=== PATIENT | female | born 1990 | race Caucasian/White ===

== ENCOUNTER 2021-05-19 06:19 | Day surgery (SDC) | payer OTHER, SELFPAY ==
[2021-05-19] VITALS (12 sets, daily range): BP systolic 122–142; BP diastolic 71–105; PULSE 69–85; RESP 16–20; TEMP 36.3–37.2; O2SAT 95–99; BMI 35.2
--- NOTE | ~2021-05-19 | CT_ITS ---
EXAMINATION: CT ABDOMEN AND PELVIS WITH CONTRAST CLINICAL INFORMATION: Abdominal pain, left lower quadrant pain COMPARISON: None TECHNIQUE: Multidetector volumetric images were obtained from the superior aspect of the liver through the pubic symphysis following administration 85 mL of Omnipaque 350 intravenous contrast. Sagittal and coronal reformatted images were obtained on the technologist's workstation. Oral contrast: No This CT examination was performed using dose optimization techniques as appropriate, variously including the following: *Automated exposure control *Adjustment of mA and/or kV according to patient size (this includes techniques or standardized protocols for targeted exams where dose is matched to indication/reason for exam; i.e. extremities or head) *Use of iterative reconstruction technique DLP: 669 mGy-cm FINDINGS: LUNG BASES: There is minimal dependent bibasilar atelectasis. The heart size is normal. LIVER, GALLBLADDER, AND BILIARY TREE: The liver is enlarged measuring 22 cm long right hepatic lobe. It is diffusely attenuated with normal hepatic contour. No focal lesion seen. No biliary ductal dilatation is present. The gallbladder is unremarkable with no evidence of radiopaque gallstones, gallbladder wall thickening, or obvious pericholecystic inflammatory changes. PANCREAS: Unremarkable. SPLEEN: Unremarkable. ADRENAL GLANDS: Unremarkable. KIDNEYS AND URETERS: The kidneys are normal in size, shape, and attenuation. 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 There are 2 mm radiopaque calculi lower pole, and midpole left kidney. There is mild hydronephrosis secondary to an obstructive 6 mm radiopaque calculi left proximal ureter. The right kidney is unremarkable. BLADDER: Unremarkable. GASTROINTESTINAL TRACT: The small and large bowel are unremarkable. The appendix is unremarkable. ABDOMINAL WALL: No significant hernia is appreciated. LYMPH NODES: Normal. VASCULAR: Unremarkable. PELVIC VISCERA: There are bilateral ovarian cysts. The right ovarian cyst measures 3.8 x 2.7 cm and left ovarian cyst measures 3.3 x 1.8 cm. The uterus is anteverted. There is no free fluid. There are small shotty lymph nodes in the lateral region. OSSEOUS STRUCTURES: Unremarkable. CT/CT abdomen pelvis w con IMPRESSION: 6 nonobstructive left proximal ureteral stone. There are at least 3 radiopaque calculi seen in the mid and lower pole left kidney. No caliectasis. Mild hepatomegaly with fatty liver. Unremarkable gallbladder and appendix. Bilateral ovarian cyst Fleischner guidelines were followed.
--- NOTE | 2021-05-19 07:42 | ED.GENADULT ---
HPI - General Adult General Chief complaint: General Medical Stated complaint: stomach pain Time Seen by Provider: 05/19/21 07:42 Source: patient and family Limitations: no limitations History of Present Illness HPI narrative: This is a 30-year-old female who woke up 2 days ago with abdominal pain and diarrhea. Patient has had pain in her lower abdomen, worse on the left today. Patient has noted some blood in her stool. She denies any urinary symptoms. She has not had any fever. She denies any nasal congestion, cough, sore throat, shortness of breath. Pain is moderately severe, cramping Related Data Home Medications Medication Instructions Recorded Confirmed levothyroxine 175 mcg tablet 1 tab PO DAILY 05/19/21 05/19/21 Allergies Allergy/AdvReac Type Severity Reaction Status Date / Time No Known Allergies Allergy Verified 05/19/21 07:46 Review of Systems Review of Systems: Yes all other systems are reviewed and are negative Constitutional: Constitutional: Reports as per HPI and Denies fever(s) Eyes: Eyes: Reports as per HPI and Reports no additional eye complaints ENT: Reports system reviewed and no additional complaints, except as documented, Reports as per HPI, Denies nasal congestion, Denies nasal discharge and Denies sore throat Cardiovascular: Cardiovascular: Reports as per HPI, Denies chest pain and Denies dyspnea Respiratory: Respiratory: Reports as per HPI, Denies cough and Denies dyspnea Gastrointestinal: Gastrointestinal: Reports as per HPI, Reports abdominal pain, Reports diarrhea, Reports nausea and Denies vomiting Genitourinary: Genitourinary: Reports as per HPI, Denies hematuria, Denies urinary frequency and Denies dysuria Musculoskeletal: Musculoskeletal: Reports no additional musculoskeletal complaints and Denies numbness Integumentary/Breasts: Skin/Breast: Reports as per HPI and Denies rash Neurologic: Reports as per HPI, Denies focal weakness, Denies numbness and Denies Sensory deficit (Neuro) Psychiatric: Psychiatric: Reports no additional psychiatric complaints and Reports as per HPI Endocrine: Endocrine: Reports no additional endocrine complaints and Reports as per HPI Hematologic/Lymphatic: Hematologic/Lymphatic: Reports no additional hematologic/lymphatic complaints, Reports as per HPI and Reports other (No peripheral edema) [facility] Past Medical History Medical History HLD (hyperlipidemia) Hypothyroid Metabolic syndrome Morbid obesity Recurrent nephrolithiasis Steatohepatitis Social History Social History Patient Tobacco Use Status: Current everyday Tobacco user Use of substances other than those prescribed or required for medical reasons: No Advance Directives: No Advance Directives Information Provided: Yes Patient : No Physical Exam Vital Signs: Vital Signs: Last Vital Signs Temp 98.9 F 05/19/21 07:18 Pulse 71 05/19/21 13:14 Resp 16 05/19/21 13:14 BP 122/78 05/19/21 13:14 Pulse Ox 96 05/19/21 13:14 BMI result Body Mass Index 35.2 Const: Other: Patient lying on her left side, repeated the rubbing her belly General: cooperative, no acute distress and alert Orientation/consciousness: patient oriented x3 HENMT: Head: Yes normal to inspection Eyes: General: appearance normal, both eyes and all related structures Eyelids: Yes eyelids normal Conjunctivae: conjunctivae normal Pupils: Equal, round and reactive pupils present Neck: Neck: Yes normal visual inspection and Yes supple Chest: Chest palpation & inspection: normal inspection of the chest Resp: Effort & Inspection: normal respiratory effort Auscultation: clear to auscultation bilaterally Cardio: Rate: regular rate Rhythm: regular rhythm Heart sounds: S1 normal heart sound present, S2 normal heart sound present, no gallops, no murmurs and no rubs GI: Inspection: Yes normal to inspection (Moderately obese) Palpation (GI): Soft to palpation, nontender and Other GI palpation findings present (Non-distended) Auscultation: normal bowel sounds, abnormal bowel sounds and Hypoactive bowel sounds present Rectal Exam - Female: tenderness (Left lower quadrant) Skin: General skin exam: no rashes or lesions noted Neuro: General: patient oriented x3, no focal motor deficits and CN's II-XI intact bilaterally Cranial nerves: Yes Equal, round and reactive pupils present Cognition (Neuro): normal cognition Motor exam (neuro): 5/5 motor strength present throughout Sensory Exam: No Sensory deficit (Neuro) Extrem: General: Yes normal to inspection and Yes no pedal edema Psych: Appearance: grossly normal Affect: normal affect Medical Decision Making MDM Narrative Medical decision making narrative: Patient with acute onset of lower abdominal pain 2 days ago with associated diarrhea. Patient did have tenderness in her left lower quadrant. Patient also reported some blood in her stool. CT did show a 6 mm proximal ureteral stone on the left with dilation of the renal pelvis and mild hydronephrosis. Creatinine was normal. Patient was treated with pain medicine and Zofran. Dr. Currie was consulted and agreed the patient is to be admitted. Dr. Vickers of the hospitalist service was consulted for the patient's admission. The patient is to be NPO and has to have a procedure later today for removal of the stone Lab Data Lab results reviewed: Yes I reviewed the patient's lab results. Result diagrams: 05/19/21 08:21 05/19/21 08:21 Labs: Lab Results 05/19/21 05/19/21 05/19/21 Range/Units 08:21 08: 08:21 WBC 8.8 (4.8-10.8) X10*3/uL RBC 4.23 (4.20-5.50) X10*6/uL Hgb 11.7 L (12.0-16.0) g/dl Hct 37.6 (37.0-47.0) % MCV 88.9 (80.0-98.0) fL MCH 27.7 (27.0-33.0) pg MCHC 31.1 (31.0-35.0) g/dl RDW 13.6 (11.0-16.0) % Plt Count 262 (160-400) X10*3/uL MPV 10.3 (9.4-12.3) fL Immature Gran % (Auto) 0.7 H (0.0-0.4) % Neut % (Auto) 73.4 H (45-73) % Lymph % (Auto) 20.6 (20-40) % [place] % (Auto) 4.0 (2-11) % Eos % (Auto) 1.1 (0-4) % Baso % (Auto) 0.2 (0-2) % Lymph # (Auto) 1.8 (1.2-4.9) X10*3/uL [place] # (Auto) 0.4 (0.1-1.2) X10*3/uL Eos # (Auto) 0.1 (0.0-0.4) X10*3/uL Baso # (Auto) 0.0 (0.0-0.2) X10*3/uL Abs Immat Gran (auto) 0.06 H (0.00-0.03) X10*3/uL Absolute Neuts (auto) 6.5 (2.0-8.3) x10*3/uL Absolute Nucleated RBC 0.000 (0.0-0.012) X10*3/uL Nucleated RBC % (auto) 0.0 (0.0-0.2) /100WBC Sodium 136 (135-145) mmol/L Potassium 4.7 (3.3-5.1) mmol/L Chloride 102 (96-108) mmol/L Carbon Dioxide 23 (22-29) mmol/L Anion Gap 16 (12-20) BUN 10 (9-16) mg/dL Creatinine 0.81 (0.5-1.4) mg/dL Estim Creat Clear Calc 108.1 Estimated GFR > 60 Random Glucose 255 H (60-115) mg/dL Estimat Average Glucose 212 mg/dL Hemoglobin A1c % 9.0 % Calcium 9.3 (8.4-10.2) mg/dL Total Bilirubin 0.2 (0.0-1.0) mg/dL AST 137 H (5-31) U/L ALT 191 H (0-31) U/L Alkaline Phosphatase 72 (39-117) U/L Total Protein 7.7 (6.5-8.0) g/dL Albumin 4.5 (3.5-5.0) g/dL Beta HCG, Quant < 2 mIU/mL Urine Color Urine Appearance Urine pH (5.0-8.0) Ur Specific [place] (1.005-1.025) Urine Protein (NEG-TRACE) MG/DL Urine Glucose (UA) (NEG) MG/DL Urine Ketones (NEG) MG/DL Urine Blood (NEG) Urine Nitrite (NEG) Ur Leukocyte Esterase (NEG) Urine RBC (0) /HPF Urine WBC (0-4) /HPF Ur Squamous Epith Cells /LPF Urine Bacteria /LPF 05/19/21 Range/Units 09:55 WBC (4.8-10.8) X10*3/uL RBC (4.20-5.50) X10*6/uL Hgb (12.0-16.0) g/dl Hct (37.0-47.0) % MCV (80.0-98.0) fL MCH (27.0-33.0) pg MCHC (31.0-35.0) g/dl RDW (11.0-16.0) % Plt Count (160-400) X10*3/uL MPV (9.4-12.3) fL Immature Gran % (Auto) (0.0-0.4) % Neut % (Auto) (45-73) % Lymph % (Auto) (20-40) % [place] % (Auto) (2-11) % Eos % (Auto) (0-4) % Baso % (Auto) (0-2) % Lymph # (Auto) (1.2-4.9) X10*3/uL [place] # (Auto) (0.1-1.2) X10*3/uL Eos # (Auto) (0.0-0.4) X10*3/uL Baso # (Auto) (0.0-0.2) X10*3/uL Abs Immat Gran (auto) (0.00-0.03) X10*3/uL Absolute Neuts (auto) (2.0-8.3) x10*3/uL Absolute Nucleated RBC (0.0-0.012) X10*3/uL Nucleated RBC % (auto) (0.0-0.2) /100WBC Sodium (135-145) mmol/L Potassium (3.3-5.1) mmol/L Chloride (96-108) mmol/L Carbon Dioxide (22-29) mmol/L Anion Gap (12-20) BUN (9-16) mg/dL Creatinine (0.5-1.4) mg/dL Estim Creat Clear Calc Estimated GFR Random Glucose (60-115) mg/dL Estimat Average Glucose mg/dL Hemoglobin A1c % % Calcium (8.4-10.2) mg/dL Total Bilirubin (0.0-1.0) mg/dL AST (5-31) U/L ALT (0-31) U/L Alkaline Phosphatase (39-117) U/L Total Protein (6.5-8.0) g/dL Albumin (3.5-5.0) g/dL Beta HCG, Quant mIU/mL Urine Color YELLOW Urine Appearance CLEAR Urine pH 6.0 (5.0-8.0) Ur Specific [place] 1.015 (1.005-1.025) Urine Protein NEG (NEG-TRACE) MG/DL Urine Glucose (UA) 100 H (NEG) MG/DL Urine Ketones NEG (NEG) MG/DL Urine Blood 3+ H (NEG) Urine Nitrite NEG (NEG) Ur Leukocyte Esterase NEG (NEG) Urine RBC 50-75 H (0) /HPF Urine WBC 0-2 (0-4) /HPF Ur Squamous Epith Cells 1+ /LPF Urine Bacteria NONE /LPF Imaging Data CT scan - abdomen: Radiologist's impression: IMPRESSION: 6 nonobstructive left proximal ureteral stone. There are at least 3 radiopaque calculi seen in the mid and lower pole left kidney. No caliectasis. ? Mild hepatomegaly with fatty liver. ? Unremarkable gallbladder and appendix. ? Bilateral ovarian cyst? Discharge Plan Discharge Clinical Impression: Calculus, ureteral, Abdominal pain, Renal colic, Diarrhea Patient Disposition: Admitted as Observation
[2021-05-19] MEDS: ondansetron HCL 4 MG/2 ML VIAL IVPUSH (07:57)
[2021-05-19] MEDS: Morphine Sulfate 4 MG/ML CARTRIDGE IVPUSH (07:57)
[2021-05-19] MEDS: 0.9 % Sodium Chloride 1,000 ML 999 ML IV (08:01)
--- NOTE | 2021-05-19 08:20 | PC.NURSE ---
pt c/o sharp 10/10 LUQ pain that radiates to her flank. she states the pain started yesterday and got worse overnight. pt states she vomited multiple times and had 2 episodes of diarrhea. pt denies fever/cough/headache. abdomen soft and tender to touch, bowel sounds active all quadrants. pt also c/o pain when urination. no other symptoms reported. iv line placed, meds given as documented, fluids hung. pt afebrile, vss. will continue to monitor.
[2021-05-19 08:37] LABS: MANUAL DIFF FLAG NO
[2021-05-19 08:42] LABS: Basophils Percent Auto 0.2 % (0-2); Eosinophils Absolute Auto 0.1 X10*3/uL (0.0-0.4); Eosinophils Percent Auto 1.1 % (0-4); Hematocrit 37.6 % (37.0-47.0); Hemoglobin 11.7 g/dl (12.0-16.0); Imm Gran Abs Auto 0.06 X10*3/uL (0.00-0.03); Imm Gran Pct Auto 0.7 % (0.0-0.4); Lymphocytes Absolute Auto 1.8 X10*3/uL (1.2-4.9); Lymphocytes Percent Auto 20.6 % (20-40); Mean Corpuscular HGB Conc 31.1 g/dl (31.0-35.0); Mean Corpuscular Hemoglobin 27.7 pg (27.0-33.0); Mean Corpuscular Volume 88.9 fL (80.0-98.0); Mean Platelet Volume 10.3 fL (9.4-12.3); Monocytes Absolute Auto 0.4 X10*3/uL (0.1-1.2); Neutrophils Absolute Auto 6.5 x10*3/uL (2.0-8.3); Neutrophils Percent Auto 73.4 % (45-73); Platelet Count 262 X10*3/uL (160-400); Red Blood Count 4.23 X10*6/uL (4.20-5.50); Red Cell Distribution Width 13.6 % (11.0-16.0); White Blood Count 8.8 X10*3/uL (4.8-10.8)
[2021-05-19 09:05] LABS: HCG Quantitative < 2 mIU/mL
[2021-05-19 09:13] LABS: Alanine Aminotransferase 191 U/L (0-31); Albumin Level 4.5 g/dL (3.5-5.0); Alkaline Phosphatase 72 U/L (39-117); Anion Gap 16 (12-20); Aspartate Amino Transferase 137 U/L (5-31); Bilirubin Total 0.2 mg/dL (0.0-1.0); Blood Urea Nitrogen 10 mg/dL (9-16); Calcium 9.3 mg/dL (8.4-10.2); Carbon Dioxide 23 mmol/L (22-29); Chloride 102 mmol/L (96-108); Creatinine Clr Calc Pharmacy 108.1; Estimated Glomerular Filt Rate > 60; Glucose Random 255 mg/dL (60-115); Potassium 4.7 mmol/L (3.3-5.1); Sodium 136 mmol/L (135-145); Total Protein 7.7 g/dL (6.5-8.0)
[2021-05-19] MEDS: iohexoL 350 MG/ML 100 ML INFUS..BTL 85 ML IV (09:32)
[2021-05-19 10:02] LABS: Appearance Urine CLEAR; Color Urine YELLOW; Glucose Urine UA 100 MG/DL (NEG); Leukocyte Esterase Urine NEG (NEG); Nitrite Urine NEG (NEG); Specific Gravity - Urine 1.015 (1.005-1.025); UACC Culture Trigger NO; Urine Blood 3+ (NEG); Urine Ketones NEG (NEG); Urine Protein NEG (NEG-TRACE)
[2021-05-19 10:10] LABS: Squamous Epithelial Cell Urine 1+ /LPF
[2021-05-19 10:11] LABS: RBC Urine 50-75 /HPF (0); WBC Urine 0-2 /HPF (0-4)
[2021-05-19] MEDS: HYDROmorphone HCl 1 MG/ML SYRINGE IVPUSH (10:52)
--- NOTE | 2021-05-19 12:38 | PHA.MEDREC ---
Pharmacy Consult ? Medication Reconciliation Pharmacy has completed the medication reconciliation.
--- NOTE | 2021-05-19 12:53 | PM.UROCN ---
History of Present Illness Consult details Consult date: 05/19/21 Narrative: Veronica is a very pleasant female. Known stone former Present to the emergency room with left-sided flank pain Imaging shows - There is mild hydronephrosis secondary to? an obstructive 6 mm radiopaque calculi left proximal ureter. The right kidney is unremarkable. Unlikely to pass Indication for intervention Review of Systems Constitutional: Constitutional: Denies chills and Denies fever(s) Cardiovascular: Cardiovascular: Reports no additional cardiovascular complaints and Denies syncope Respiratory: Respiratory: Denies cough Gastrointestinal: Gastrointestinal: Denies abdominal pain and Denies heartburn Genitourinary: Genitourinary: Reports as per HPI and Denies change in libido Neurologic: Denies syncope Psychiatric: Psychiatric: Denies change in libido Endocrine: Endocrine: Denies change in libido [facility] Past Medical History Medical History (Updated 05/19/21 @ 12:54 by Faisal Ritter MD) HLD (hyperlipidemia) Hypothyroid Metabolic syndrome Morbid obesity Recurrent nephrolithiasis Steatohepatitis Social History Social History Patient Tobacco Use Status: Current everyday Tobacco user Use of substances other than those prescribed or required for medical reasons: No Advance Directives: No Advance Directives Information Provided: Yes Patient : No Meds Allergies Allergy/AdvReac Type Severity Reaction Status Date / Time No Known Allergies Allergy Verified 05/19/21 07:46 Active Medications: Current Medications Levothyroxine Sodium (Levothyroxine Sodium 175 Mcg Tablet) 175 mcg PO DAILY@0600 [facility] Pharmacy Consult (Consult Rx Perform Med Rec) 1 each MISCELLANE ONCE PRN PRN Reason: Consult order Pharmacy Consult (Consult Rx Perform Med Rec) 1 each MISCELLANE ONCE PRN PRN Reason: Consult order Home Medications Medication Instructions Recorded Confirmed Last Taken Type levothyroxine 175 mcg tablet 1 tab PO DAILY 05/19/21 05/19/21 05/18/21 History Physical Exam Vital Signs: Vital Signs: Last Vital Signs Temp 98.9 F 05/19/21 07:18 Pulse 69 05/19/21 10:00 Resp 16 05/19/21 10:00 BP 132/82 05/19/21 10:00 Pulse Ox 97 05/19/21 10:00 BMI result Body Mass Index 35.2 Const: General: cooperative, healthy appearing, comfortable and no acute distress Orientation/consciousness: patient oriented x3 HENMT: Face and sinus: Yes normal facial exam Mouth: moist mucous membranes Neck: Neck: Yes normal visual inspection, Yes full ROM and Yes trachea midline Chest: Chest palpation & inspection: normal inspection of the chest Resp: Effort & Inspection: normal respiratory effort, able to speak in complete sentences and no respiratory distress GI: Inspection: Yes normal to inspection Back/Spine/Pelvis: Cervical Spine: normal cervical lordosis Thoracic/Lumbar Spine: thoracic and lumbar spine normal to inspection Skin: General skin exam: no rashes or lesions noted Neuro: General: patient oriented x3, gait normal, tone normal and moves all extremities Extrem: General: Yes normal to inspection and Yes capillary refill normal Results Labs Result diagrams: 05/19/21 08:21 05/19/21 08:21 Labs: Abnormal lab results 05/19/21 05/19/21 05/19/21 Range/Units 08:21 08:21 09:55 Hgb 11.7 L (12.0-16.0) g/dl Immature Gran % (Auto) 0.7 H (0.0-0.4) % Neut % (Auto) 73.4 H (45-73) % Abs Immat Gran (auto) 0.06 H (0.00-0.03) X10*3/uL Random Glucose 255 H (60-115) mg/dL AST 137 H (5-31) U/L ALT 191 H (0-31) U/L Urine Glucose (UA) 100 H (NEG) MG/DL Urine Blood 3+ H (NEG) Urine RBC 50-75 H (0) /HPF Short CBC 05/19/21 Range/Units 08:21 WBC 8.8 (4.8-10.8) X10*3/uL Hgb 11.7 L (12.0-16.0) g/dl Hct 37.6 (37.0-47.0) % Plt Count 262 (160-400) X10*3/uL BMP 05/19/21 08:21 Sodium 136 Potassium 4.7 Chloride 102 Carbon Dioxide 23 BUN 10 Creatinine 0.81 Calcium 9.3 Liver Function 05/19/21 Range/Units 08:21 Total Bilirubin 0.2 (0.0-1.0) mg/dL AST 137 H (5-31) U/L ALT 191 H (0-31) U/L Alkaline Phosphatase 72 (39-117) U/L Albumin 4.5 (3.5-5.0) g/dL Urine 05/19/21 Range/Units 09:55 Urine Color YELLOW Urine Appearance CLEAR Urine pH 6.0 (5.0-8.0) Ur Specific [place] 1.015 (1.005-1.025) Urine Protein NEG (NEG-TRACE) MG/DL Urine Glucose (UA) 100 H (NEG) MG/DL All other labs normal. Assessment and Plan (1) Calculus, ureteral: Status: Acute Ureteroscopy We discussed the nature of the decision and reasonable alternatives for performing the above surgery. Interventions include chemical dissolution, ESWL, ureteroscopy with laser lithotripsy and stent placement, PCNL. Options such as medical therapy were discussed. The relative uncertainties and benefits related to each alternate procedure were adequately discussed. General surgical risks including, but not limited to, pain, bleeding, infection, myocardial infarction, pulmonary embolus, deep vein thrombosis and cerebrovascular accident which may result in further hospitalization were discussed. Full disclosure of the procedure as well as all major risks, benefits and complications were discussed including but not limited to damage to the urethra, bladder and kidney infection, damage to the ureter, stent migration or malposition, scarring to the renal pelvis, remnant stone fragments, subsequent stone passage with need for secondary procedures. The overall secondary procedure rate is approximately 10-15%. The success rate of the procedure was discussed. Success of the procedure in the short-term does not necessarily guarantee that long-term success will be maintained. Suitable follow up will need to be maintained. The patient showed understanding of discussion and wishes to proceed with - cystoscopy, retrograde, ureteroscopy, possible lithotripsy/stone basketing and stent on the left side Procedures Date of Service Date of Service: 05/19/21
--- NOTE | 2021-05-19 12:55 | PM.IMHP ---
History of Present Illness Date of Service: 05/19/21 Chief Complaint: left flank pain 30F with PMH of recurrent nephrolithiasis presented with sudden onset sharp left sided 10/10 abdominal/flank pain, woke her up from sleep, continuous, no aggravating factors, relieved with opiates, assoicated with nasuea and vomitting. CT showed obstructing left proximal ureteral stone 6mm with mild hydronephrosis. labs significant for elevated transaminases, glucose of 255. Review of Systems Review of Systems: Constitutional: Denies fever, denies Chills Eyes: denies blurry vision ENT: denies sore throat CVS: denies chest pain Respiratory: Denies dyspnea GI: abdominal pain : denies dysuria MSK: denies neck pain Skin: denies rash Neuro: denies specific motor weakness Psych: denies suicidal ideation Endocrine: denies heat/cold intolerance Hematologic: denies easy bleeding Allergy: denies hives [facility] Medical History HLD (hyperlipidemia) Hypothyroid Metabolic syndrome Morbid obesity Recurrent nephrolithiasis Steatohepatitis Pertinent family history: patient adopted Social History Patient Tobacco Use Status: Current everyday Tobacco user Use of substances other than those prescribed or required for medical reasons: No Advance Directives: No Advance Directives Information Provided: Yes Patient : No Meds Allergies Allergy/AdvReac Type Severity Reaction Status Date / Time No Known Allergies Allergy Verified 05/19/21 07:46 Active Medications: Current Medications Acetaminophen (Acetaminophen 325 Mg Tablet) 650 mg PO Q6H PRN PRN Reason: Pain, Mild (Pain Scale 1-3) Lactated Ringer's (Lr) 1,000 mls @ 100 mls/hr IVCONT .Q10H REX Levothyroxine Sodium (Levothyroxine Sodium 175 Mcg Tablet) 175 mcg PO DAILY@0600 [facility] Morphine Sulfate (Morphine Sulfate 4 Mg/Ml Cartridge) 4 mg IVPUSH Q4H PRN; Protocol PRN Reason: moderate pain Ondansetron HCl (Ondansetron Hcl 4 Mg/2 Ml Vial) 4 mg IVPUSH Q8H PRN PRN Reason: nausea Pharmacy Consult (Consult Rx Perform Med Rec) 1 each MISCELLANE ONCE PRN PRN Reason: Consult order Pharmacy Consult (Consult Rx Perform Med Rec) 1 each MISCELLANE ONCE PRN PRN Reason: Consult order Sodium Chloride (0.9 % Sodium Chloride Flush 3 Ml Syringe) 3 ml IVFLUSH QSHIFT [facility] Home Medications Medication Instructions Recorded Confirmed Last Taken Type levothyroxine 175 mcg tablet 1 tab PO DAILY 05/19/21 05/19/21 05/18/21 History Physical Exam Vital Signs and Narrative: Vital Signs: Last Vital Signs Temp 98.9 F 05/19/21 07:18 Pulse 69 05/19/21 10:00 Resp 16 05/19/21 10:00 BP 132/82 05/19/21 10:00 Pulse Ox 97 05/19/21 10:00 BMI result Body Mass Index 35.2 General: in discomfort HEENT: atraumatic Neck: normal to visual inspection CVS: S1, S2, RRR Resp: CTA bilateral Chest: non tender GI: soft, non tender, non distended : left CVA tenderness Skin: no rashes Extremities: no edema Neuro: Oriented X3, grossly intact Psych: cooperative Results Labs CBC and Chem 7: 05/19/21 08:21 05/19/21 08:21 Labs: Laboratory Results - last 24 hr 05/19/21 05/19/21 05/19/21 08:21 08:21 09:55 MCV 88.9 MCH 27.7 MCHC 31.1 RDW 13.6 Plt Count 262 MPV 10.3 Immature Gran % (Auto) 0.7 H Neut % (Auto) 73.4 H Lymph % (Auto) 20.6 [place] % (Auto) 4.0 Eos % (Auto) 1.1 Baso % (Auto) 0.2 Lymph # (Auto) 1.8 [place] # (Auto) 0.4 Eos # (Auto) 0.1 Baso # (Auto) 0.0 Abs Immat Gran (auto) 0.06 H Absolute Neuts (auto) 6.5 Absolute Nucleated RBC 0.000 Nucleated RBC % (auto) 0.0 Anion Gap 16 Estim Creat Clear Calc 108.1 Estimated GFR > 60 Random Glucose 255 H Calcium 9.3 Total Bilirubin 0.2 AST 137 H ALT 191 H Alkaline Phosphatase 72 Total Protein 7.7 Albumin 4.5 Beta HCG, Quant < 2 Urine Color YELLOW Urine Appearance CLEAR Urine pH 6.0 Ur Specific [place] 1.015 Urine Protein NEG Urine Glucose (UA) 100 H Urine Ketones NEG Urine Blood 3+ H Urine Nitrite NEG Ur Leukocyte Esterase NEG Urine RBC 50-75 H Urine WBC 0-2 Ur Squamous Epith Cells 1+ Urine Bacteria NONE Imaging Radiologist's Impressions: Impressions Abdomen/Pelvis CT 05/19/21 09:43 IMPRESSION: 6 nonobstructive left proximal ureteral stone. There are at least 3 radiopaque calculi seen in the mid and lower pole left kidney. No caliectasis. Mild hepatomegaly with fatty liver. Unremarkable gallbladder and appendix. Bilateral ovarian cyst Fleischner guidelines were followed. Assessment and Plan (1) Calculus, ureteral: Status: Acute 30F presented with left flank pain, found to have obstructing left uereteral stone, noted to have hyperglycemia obstructing left ureteral stone npo, ivf, pain meds, antiemetics plan for uretroscopy and lithotripsy today hyperglycemia in setting of metabolic syndrome with hyperlipedemia, fatty liver, morbid obesity. weight loss recommended check a1c, lipids may be new DM monitor poc, cover with insulin hypthyroid synthroid smoking cessation dvt prophylaxis - low risk Quality Stroke Does the patient have a stroke diagnosis?: No VTE Prior VTE?: No VTE Risk Level:: Medical - low VTE Device Contraindication: Treatment Not Indicated VTE Drug Contraindication: Treatment Not Indicated
[2021-05-19 13:45] LABS: COVID-19 Test Negative (Negative)
[2021-05-19] MEDS: levoFLOXacin/D5W 500 MG/100 ML PIGGYBACK 100 MG IV (13:45)
[2021-05-19 13:57] LABS: Estimated Average Glucose 212 mg/dL
[2021-05-19] MEDS: Lactated Ringers 1,000 ML 100 ML IVCONT (15:16)
--- NOTE | 2021-05-19 16:50 | MHC.CM.PN ---
CM met with patient admitted to observation. hat liner used as pt is Bulgarian speaking. BRICE reviewed and signed per protocol 05/19/21 @1635. No HCP on file. Pt educated, declines at this time. PCP listed is not pt PCP. Pt states she sees a doctor at [facility] in [place], cannot remember provider's name. Fully vaccinated with Moderna. Lives with girlfriend. Has no DME or services. D/C plan is home without services. Transportation by family. CM to follow for d/c needs.
[2021-05-19 17:05] LABS: Glucose, Whole Blood 134 mg/dL (60-115)
--- NOTE | 2021-05-19 17:14 | HO.ANESPROP2 ---
[facility] Active Problems Active Problems: All Active Problems (Updated 05/19/21 @ 14:50 by Fredrick Hernandez MD) Abdominal pain (Acute) Renal colic (Acute) Diarrhea (Acute) HLD (hyperlipidemia) (Acute) Metabolic syndrome (Acute) Morbid obesity (Acute) Hyperglycemia (Acute) Steatohepatitis (Acute) Hypothyroid (Acute) Calculus, ureteral (Acute) Past Medical History Medical History HLD (hyperlipidemia) Hypothyroid Metabolic syndrome Morbid obesity Recurrent nephrolithiasis Steatohepatitis Family History Family history of problems with anesthesia: No Surgical History History of Problems with Anesthesia: No Social History Social History Patient Tobacco Use Status: Current everyday Tobacco user Use of substances other than those prescribed or required for medical reasons: No Advance Directives: No Advance Directives Information Provided: Yes Patient : No service: No Current occupational status: unemployed Meds Allergies Allergy/AdvReac Type Severity Reaction Status Date / Time No Known Allergies Allergy Verified 05/19/21 07:46 Active Medications: Current Medications Acetaminophen (Acetaminophen 325 Mg Tablet) 650 mg PO Q6H PRN PRN Reason: Pain, Mild (Pain Scale 1-3) Dextrose (Dextrose 50 % 25 Gm/50 Ml Vial) 25 gm IVPUSH Q15M PRN; Protocol PRN Reason: per Hypoglycemia Standing Ord. Glucose (Glucose Gel 15 Gm Gel..Gram.) 15 gm PO Q15M PRN; Protocol PRN Reason: per Hypoglycemia Standing Ord. Lactated Ringer's (Lr) 1,000 mls @ 100 mls/hr IVCONT .Q10H [facility] Last Admin: 05/19/21 15:16 Dose: 100 mls/hr Documented by: Insulin Human Lispro (Insulin Lispro 100 Unit/Ml 3 Ml Vial) 0 unit SUBCUT QIDACHS [facility]; Protocol Levothyroxine Sodium (Levothyroxine Sodium 175 Mcg Tablet) 175 mcg PO DAILY@0600 [facility] Morphine Sulfate (Morphine Sulfate 4 Mg/Ml Cartridge) 4 mg IVPUSH Q4H PRN; Protocol PRN Reason: moderate pain Ondansetron HCl (Ondansetron Hcl 4 Mg/2 Ml Vial) 4 mg IVPUSH Q8H PRN PRN Reason: nausea Pharmacy Consult (Consult Rx Perform Med Rec) 1 each MISCELLANE ONCE PRN PRN Reason: Consult order Pharmacy Consult (Consult Rx Perform Med Rec) 1 each MISCELLANE ONCE PRN PRN Reason: Consult order Sodium Chloride (0.9 % Sodium Chloride Flush 3 Ml Syringe) 3 ml IVFLUSH QSHIFT [facility] Home Medications Medication Instructions Recorded Confirmed Last Taken Type levothyroxine 175 mcg tablet 1 tab PO DAILY 05/19/21 05/19/21 05/18/21 History Exam Exam Date and Time: May 19, 2021 171 Height,Weight and Vital Signs: Height 5 ft 3 in Weight 90.045 kg Last Vital Signs Temp 97.3 F 05/19/21 16:49 Pulse 70 05/19/21 16:49 Resp 20 05/19/21 16:49 BP 126/71 05/19/21 16:49 Pulse Ox 97 05/19/21 16:49 Pertinent Lab Results Pertinent Lab Results: Laboratory Tests 05/19/21 05/19/21 05/19/21 08:21 08:21 08:21 WBC 8.8 RBC 4.23 Hgb 11.7 L Hct 37.6 MCV 88.9 MCH 27.7 MCHC 31.1 RDW 13.6 Plt Count 262 MPV 10.3 Immature Gran % (Auto) 0.7 H Neut % (Auto) 73.4 H Lymph % (Auto) 20.6 [place] % (Auto) 4.0 Eos % (Auto) 1.1 Baso % (Auto) 0.2 Lymph # (Auto) 1.8 [place] # (Auto) 0.4 Eos # (Auto) 0.1 Baso # (Auto) 0.0 Abs Immat Gran (auto) 0.06 H Absolute Neuts (auto) 6.5 Absolute Nucleated RBC 0.000 Nucleated RBC % (auto) 0.0 Sodium 136 Potassium 4.7 Chloride 102 Carbon Dioxide 23 Anion Gap 16 BUN 10 Creatinine 0.81 Estim Creat Clear Calc 108.1 Estimated GFR > 60 POC Glucose Random Glucose 255 H Estimat Average Glucose 212 Hemoglobin A1c % 9.0 Calcium 9.3 Total Bilirubin 0.2 AST 137 H ALT 191 H Alkaline Phosphatase 72 Total Protein 7.7 Albumin 4.5 Beta HCG, Quant < 2 Urine Color Urine Appearance Urine pH Ur Specific [place] Urine Protein Urine Glucose (UA) Urine Ketones Urine Blood Urine Nitrite Ur Leukocyte Esterase Urine RBC Urine WBC Ur Squamous Epith Cells Urine Bacteria COVID-19 (BECCA) COVID-19 Clin Com 05/19/21 05/19/21 05/19/21 09:55 13:17 17:01 WBC RBC Hgb Hct MCV MCH MCHC RDW Plt Count MPV Immature Gran % (Auto) Neut % (Auto) Lymph % (Auto) [place] % (Auto) Eos % (Auto) Baso % (Auto) Lymph # (Auto) [place] # (Auto) Eos # (Auto) Baso # (Auto) Abs Immat Gran (auto) Absolute Neuts (auto) Absolute Nucleated RBC Nucleated RBC % (auto) Sodium Potassium Chloride Carbon Dioxide Anion Gap BUN Creatinine Estim Creat Clear Calc Estimated GFR POC Glucose 134 H Random Glucose Estimat Average Glucose Hemoglobin A1c % Calcium Total Bilirubin AST ALT Alkaline Phosphatase Total Protein Albumin Beta HCG, Quant Urine Color YELLOW Urine Appearance CLEAR Urine pH 6.0 Ur Specific [place] 1.015 Urine Protein NEG Urine Glucose (UA) 100 H Urine Ketones NEG Urine Blood 3+ H Urine Nitrite NEG Ur Leukocyte Esterase NEG Urine RBC 50-75 H Urine WBC 0-2 Ur Squamous Epith Cells 1+ Urine Bacteria NONE COVID-19 (BECCA) Negative COVID-19 Clin Com See Note Airway Mallampati Class: III TM Dist: >3cm Neck ROM: Full Assessment and Plan Assessment Anesthesia Assessment: Anesthesia Plan Discussed, Smoking Cess. Discussed and Chart Reviewed Final Anesthetic Review Family History of Problems with Anesthesia: No History of Problems with Anesthesia: No NPO: Yes ASA Class: III Final Preanesthetic Review: Meds/Allgs Chart Reviewed, Consent Obtained/Reviewed and Anes Risks/Benef Reviewed Patient Risk: Intermediate Procedure Risk: Intermediate Anesthetic Plan Anesthetic Plan: GA Disposition: Standard PACU
--- NOTE | 2021-05-19 17:43 | MHC.SHP ---
Pre-Procedural Eval Section A Date of Service: 05/19/21 The patient is an INPATIENT: Yes Changes since office visit: No Cold of Flu in the past 2 weeks, No New Medical Problems, No Changes in Medication and No Patient answered all questions The History & Physical has been completed within 30 days and I have reviewed it.: Yes Section B Chief Complaint: obstructing stone Allergies: Allergies Allergy/AdvReac Type Severity Reaction Status Date / Time No Known Allergies Allergy Verified 05/19/21 07:46 Plan Diagnosis/Plan: Unchanged (Cystoscopy, left retrograde, left ureteroscopy laser lithotripsy stone basket) I have reviewed the history and physical and performed a pertinent physical examination on my patient. No changes have occurred unless specified.
--- NOTE | 2021-05-19 18:32 | W.PM.OPN ---
Operative Note Operative Note Date of Service: 05/19/21 Narrative: PreOperative Diagnosis: Left proximal ureteric stone Post Operative Diagnosis: Left proximal ureteric stone and kidney stone Procedure: - cystoscopy, left retrograde - left dilatation of ureteric orifice under fluoroscopy - left ureteroscopy, stone basketing - left stent placement Surgeon: Dr Tam Currie Anesthesia: General Indications for procedure: 30-year-old female. Admitted through the emergency room. Imaging with left proximal ureteric stone and left renal stone. Not tolerating orals. Recommend intervention with ureteroscopy. Procedure: After informed consent was verified patient was brought to the operating placed in supine position. Anesthesia was administered per protocol. Patient was placed in modified dorsal lithotomy position and prepped and draped in a sterile fashion. Safety pause time-out and side of surgery confirmed. Antibiotics confirmed. Twenty-two [place] cystoscope inserted per urethra. Both ureteric orifices seen in normal position. Left ureteric orifice cannulated and retrograde examination performed. Filling defect at length proximal ureter. Sensor guidewire placed. Sensor guidewire placed and stone pushed back into kidney. Ureteric access sheath placed with dilatation of ureteric orifice under fluoroscopy. Flexible digital ureteral scope placed. Stones encountered. One stone in lower pole. One stone in upper pole. Lower pole stone was basketed and removed. Upper pole stone was basketed and was able to be removed in its entirety as it was approximately 6 mm across. One stones were removed the Sensor guidewire was placed. The ureteric access sheath was removed. 6 [place] by 24 cm double-J stent placed with good coil seen in renal pelvis and in bladder. Bladder emptied. Patient tolerated procedure well was extubated in the operating room, transferred in stable condition to the recovery area. Pathology: Stones Drains: 6 [place] by 24 cm stent
--- NOTE | 2021-05-19 18:56 | PC.NURSE ---
PER DISCUSSION WITH DR. WILSON HAD DISCUSSED PLAN FOR DISCHARGE WITH HOSPITALIST FOLLOWING PATIENT'S UROLOGICAL PROCEDURE. NANETTE GEORGE, QUESTIONED CURRENT LAB RESULTS INCLUDING LFT AND ADMISSION RELATED TO ABDOMINAL PAIN. PER M.D. PLAN IS TO DISCHARGE PROCEDURE FOLLOWING THE PROCEDURE.
--- NOTE | 2021-05-19 20:08 | PC.NURSE ---
DISCUSSION WITH DR. HUNT HOSPITALIST REGARDING PATIENT DISCHARGE FOLLOWING UROLOGICAL PROCEDURE. PER Geoffrey. NEED TO FOLLOW-UP WITH PATIENT TO ADVISE FOLLOW-UP PROMPTLY WITH PCP REGARDING NEW DIABETES DIAGNOSIS. DR. WILSON ADVISED PATIENT DISCHARGED AND NEED FOLLOW-UP REGARDING ELEVATED BLOOD SUGAR/DIABETES. DR. WILSON INDICATED PATIENT HAD EXPRESSED TO HIM PREFERENCE TO DISCHARGE TO HOME POST PROCEDURE RELATED TO SMALL CHILDREN AT HOME.
--- NOTE | 2021-05-19 20:16 | PC.NURSE ---
CALL TO PATIENT REQUESTED BY DR. HUNT. PATIENT ADVISED OF NEED TO FOLLOW UP WITH PRIMARY CARE PHYSICIAN RELATED TO NEWLY DIAGNOSED DIABETES AND ELEVATED BLOOD SUGAR. PATIENT EDUCATED IN RISKS OF NOT MANAGING DIABETES. PATIENT AGREED TO CALL PRIMARY CARE PHYSICIAN TOMORROW MORNING TO REQUEST IMMEDIATE FOLLOW-UP APPOINTMENT RELATED TO NEWLY DIAGNOSED DIABETES.
--- NOTE | 2021-05-20 07:21 | PM.DS ---
DS: Providers Provider Date of Service: 05/19/21 Date of discharge: 05/19/21 Primary care physician: Sofía Velázquez MD DS: Diagnosis Discharge Diagnosis (1) Calculus, ureteral: Status: Acute (2) Metabolic syndrome: Status: Acute (3) Morbid obesity: Status: Acute (4) Hyperglycemia: Status: Acute (5) Steatohepatitis: Status: Acute (6) Hypothyroid: Status: Acute (7) Newly diagnosed diabetes: Status: Acute DS: Summary Hospital Course Hospital Course: patient was admitted for obstructing left ureteral stone. she underwent cystoscopy with stone removal and stent placement. patient was also noted to have newly diagnosed metabolic syndrome with newly diagnosed diabetes with A1c of 9 and steatohepatitis likely due to PULLIAM. Unfortunately, I was informed, after the fact, that the patient was discharged from the PACU post procedure. This was not the plan discussed with the patient, as i had told her that we were awaiting results of her A1c and we were going to discuss starting diabetes medication and getting supplies prior to discharge. Patient was called and informed to follow up as soon as possible with her PCP to address her newly diagnosed diabetes. Time Spent with Patient Time attestation: Total time spent providing and/or coordinating discharge services: Discharge coordination time: Greater than 30 minutes Quality: Stroke Does the patient have a stroke diagnosis?: No Physical Exam Vital Signs: Vital Signs: Last Vital Signs Temp 97.4 F 05/19/21 19:01 Pulse 71 05/19/21 19:32 Resp 20 05/19/21 19:32 BP 142/89 H 05/19/21 19:32 Pulse Ox 96 05/19/21 19:32 BMI result Body Mass Index 35.2 General: AO X 3, no acute distress Resp: CTA bilateral, no accessory muscles used CVS: S1,S2,RRR GI: soft, non tender, non distended Neuro: motor grossly intact, alert Psych: appropriate affect, appropriate insight DS: Data Data Completed and Pending Pending studies at discharge: Pending at discharge 05/19/21 18:46 Surgical [PTH] Routine Labs on day of discharge: Laboratory Results - last 24 hr 05/19/21 05/19/21 05/19/21 08:21 08:21 08:21 WBC 8.8 RBC 4.23 Hgb 11.7 L Hct 37.6 MCV 88.9 MCH 27.7 MCHC 31.1 RDW 13.6 Plt Count 262 MPV 10.3 Immature Gran % (Auto) 0.7 H Neut % (Auto) 73.4 H Lymph % (Auto) 20.6 [place] % (Auto) 4.0 Eos % (Auto) 1.1 Baso % (Auto) 0.2 Lymph # (Auto) 1.8 [place] # (Auto) 0.4 Eos # (Auto) 0.1 Baso # (Auto) 0.0 Abs Immat Gran (auto) 0.06 H Absolute Neuts (auto) 6.5 Absolute Nucleated RBC 0.000 Nucleated RBC % (auto) 0.0 Sodium 136 Potassium 4.7 Chloride 102 Carbon Dioxide 23 Anion Gap 16 BUN 10 Creatinine 0.81 Estim Creat Clear Calc 108.1 Estimated GFR > 60 POC Glucose Random Glucose 255 H Estimat Average Glucose 212 Hemoglobin A1c % 9.0 Calcium 9.3 Total Bilirubin 0.2 AST 137 H ALT 191 H Alkaline Phosphatase 72 Total Protein 7.7 Albumin 4.5 Beta HCG, Quant < 2 Urine Color Urine Appearance Urine pH Ur Specific [place] Urine Protein Urine Glucose (UA) Urine Ketones Urine Blood Urine Nitrite Ur Leukocyte Esterase Urine RBC Urine WBC Ur Squamous Epith Cells Urine Bacteria COVID-19 (BECCA) COVID-19 Clin Com 05/19/21 05/19/21 05/19/21 09:55 13:17 17:01 WBC RBC Hgb Hct MCV MCH MCHC RDW Plt Count MPV Immature Gran % (Auto) Neut % (Auto) Lymph % (Auto) [place] % (Auto) Eos % (Auto) Baso % (Auto) Lymph # (Auto) [place] # (Auto) Eos # (Auto) Baso # (Auto) Abs Immat Gran (auto) Absolute Neuts (auto) Absolute Nucleated RBC Nucleated RBC % (auto) Sodium Potassium Chloride Carbon Dioxide Anion Gap BUN Creatinine Estim Creat Clear Calc Estimated GFR POC Glucose 134 H Random Glucose Estimat Average Glucose Hemoglobin A1c % Calcium Total Bilirubin AST ALT Alkaline Phosphatase Total Protein Albumin Beta HCG, Quant Urine Color YELLOW Urine Appearance CLEAR Urine pH 6.0 Ur Specific [place] 1.015 Urine Protein NEG Urine Glucose (UA) 100 H Urine Ketones NEG Urine Blood 3+ H Urine Nitrite NEG Ur Leukocyte Esterase NEG Urine RBC 50-75 H Urine WBC 0-2 Ur Squamous Epith Cells 1+ Urine Bacteria NONE COVID-19 (BECCA) Negative COVID-19 Clin Com See Note Discharge Plan Discharge Patient Disposition: Home, Self-Care Referrals: Sofía Velázquez MD [Primary Care Provider] - 1 Week Discharge Medications: New phenazopyridine [Pyridium] 100 mg tablet 100 mg PO TID PRN (Reason: spasm) 4 Days Qty: 12 RF: 0 tamsulosin 0.4 mg capsule 0.4 mg PO BEDTIME 14 Days Qty: 14 RF: 0 naproxen 500 mg tablet 500 mg PO BID PRN (Reason: pain) 7 Days Qty: 14 RF: 0 tramadol 50 mg tablet 50 mg PO Q6H PRN (Reason: pain (scale score 4-6)) Qty: 14 RF: 0 Continued levothyroxine 175 mcg tablet 1 tab PO DAILY RF: 0 Discharge Orders: Discharge Order (Routine); Ordered 05/19/21 Ordered By: Tam Currie Stand Alone Forms: Patient Portal Discharge page
[2021-05-25 23:16] LABS: Stone Source L URETER
== END 2021-05-19 19:46 | disposition home or self-care (01) ==
LOC: HO.ED 12:57 → HO.EDOVER 14:50 → HO.SSS 19:50
PROVIDERS: Internal Medicine; Emergency Provider Emergency Medicine; PCP Family Medicine; Visit Provider Urology
PROC: (CPT 52352; principal; 2021-05-19 17:00)
DX: N13.2 Hydronephrosis with renal and ureteral calculous obstruction (principal); Z87.442 Personal history of urinary calculi; E11.9 Type 2 diabetes mellitus without complications; E03.9 Hypothyroidism, unspecified; E78.5 Hyperlipidemia, unspecified; K75.81 Nonalcoholic steatohepatitis (NASH); E66.01 Morbid (severe) obesity due to excess calories; Z68.35 Body mass index [BMI] 35.0-35.9, adult; Z79.899 Other long term (current) drug therapy; Z20.822 Contact with and (suspected) exposure to COVID-19; F17.210 Nicotine dependence, cigarettes, uncomplicated
CPT/HCPCS: 52352; 52332; 36415; 74177; 80053; 81001; 81003; 82365; 82947; 83036; 84702; 85025; 87040; 87635; 88300; 96361; 96374; 96375; 99285; C1769; C1894; C2617; J1100; J1170; J1885; J1956; J2250; J2270; J2405; J3010; Q9967

== ENCOUNTER → 2021-05-26 08:52 | Outpatient (BNVA) | payer OTHER, SELFPAY | PROVIDERS: PCP Family Medicine; Visit Provider Urology | DX: E83.59 Other disorders of calcium metabolism (principal) | CPT/HCPCS: 52310 ==

== ENCOUNTER 2021-06-21 14:16 | Outpatient (REF) | payer OTHER, SELFPAY ==
--- NOTE | ~2021-06-21 | US_ITS ---
EXAMINATION: US RETROPERITONEAL LIMITED (RENAL ONLY) CLINICAL INFORMATION: Other disorders of calcium metabolism. COMPARISON: CT abdomen and pelvis with contrast dated 05/19/2021. TECHNIQUE: Real-time imaging of the kidneys. FINDINGS: RIGHT KIDNEY: 12.4 x 5.2 x 6.1 cm (SAG x AP x TRV). The kidney is normal in size, contour, and echogenicity. Renal cortical thickness is normal. There is a 6 mm echogenic density in the lower pole of the right kidney questionable for a stone. No focal parenchymal lesions or hydronephrosis. LEFT KIDNEY: 12.6 x 7.3 x 5.1 cm (SAG x AP x TRV). The kidney is normal in size, contour, and echogenicity. Renal cortical thickness is normal. There is a duplicated left renal collecting system. There is a 4 mm echogenic density in the midpole questionable for a stone.No focal parenchymal lesions or hydronephrosis. US/US renal BI IMPRESSION: No hydronephrosis. Question bilateral renal stones. Duplicated left renal collecting system.
== END 2021-06-21 14:17 | disposition home or self-care (01) ==
LOC: HO.US 14:16
PROVIDERS: Visit Provider Urology
DX: E83.59 Other disorders of calcium metabolism (principal)
CPT/HCPCS: 76775

== ENCOUNTER 2022-04-11 06:23 | Emergency (ER) | payer OTHER, SELFPAY ==
[2022-04-11 06:49] VITALS: BP 126/85; PULSE 78; RESP 16; TEMP 36.5; O2SAT 99; BMI 33.5
--- NOTE | 2022-04-11 08:01 | ED.URI ---
HPI - URI/Sore Throat General Chief Complaint: General Medical Stated Complaint: throat pain Time Seen by Provider: 04/11/22 08:00 Source: patient Mode of arrival: ambulatory Limitations: no limitations History of Present Illness HPI Narrative: 31 yo female with hx of HLD, hypothyroidism reports cough, sore throat, runny nose x 5 days - works in a school. taking OTC without relief. MD elicited complaint: cough, sore throat, rhinorrhea and nasal congestion Onset (ago): day(s) (5) Consistency: constant Severity: moderate Description of mucous: clear Able to tolerate fluids by mouth: Yes Exacerbating factors: swallowing Relieving factors: nothing Context: sick contacts Associated symptoms: chills, rhinorrhea, nasal congestion, sore throat and cough Treatments prior to arrival: cold medicine Related Data Home Medications Medication Instructions Recorded Confirmed levothyroxine 175 mcg tablet 1 tab PO DAILY 05/19/21 05/19/21 Previous Rx's Medication Instructions Recorded naproxen 500 mg tablet 500 mg PO BID PRN pain 7 days #14 05/19/21 tabs phenazopyridine 100 mg tablet 100 mg PO TID PRN spasm 4 days #12 05/19/21 (Pyridium) tabs tamsulosin 0.4 mg capsule 0.4 mg PO BEDTIME 14 days #14 caps 05/19/21 tramadol 50 mg tablet 50 mg PO Q6H PRN pain (scale score 05/19/21 4-6) #14 tabs oxybutynin chloride 5 mg tablet 5 mg PO Q8H PRN bladder spasms #20 05/23/21 tabs potassium citrate 10 mEq (1,080 20 meq PO BID 90 days #360 tabs 05/26/21 mg) tablet,extended release albuterol sulfate 90 mcg/actuation 2 puff inhalation QID PRN 04/11/22 aerosol inhaler shortness of breath or wheezing #6.7 grams azithromycin 250 mg tablet See Rx Instructions PO .COMPLEX #6 04/11/22 tabs benzonatate 100 mg capsule 100 mg PO TID PRN cough #14 caps 04/11/22 Allergies Allergy/AdvReac Type Severity Reaction Status Date / Time No Known Allergies Allergy Verified 05/26/21 08:57 Review of Systems Review of Systems: Constitutional : no Fever, positive Chills, positive fatigue, positive Malaise ENT/Mouth : positive sore throat, positive runny nose Eyes: No Discharge Cardiovascular : No Chest Pain, No SOB Respiratory : No Cough, No Sputum Gastrointestinal : No Nausea, No Vomiting, No Diarrhea Genitourinary : No Dysuria, No Urinary Frequency Musculoskeletal : positive Myalgia Skin : No rash Neuro : No Headache [facility] Past Medical History Medical History Calculus, ureteral HLD (hyperlipidemia) Hypothyroid Metabolic syndrome Morbid obesity Newly diagnosed diabetes Recurrent nephrolithiasis Steatohepatitis Social History Social History Patient Tobacco Use Status: Current everyday Tobacco user Advance Directives: No service: No Current occupational status: unemployed Physical Exam Vital Signs: Vital Signs: Last Vital Signs Temp 97.7 F 04/11/22 06:49 Pulse 78 04/11/22 06:49 Resp 18 04/11/22 08:26 BP 126/85 04/11/22 06:49 Pulse Ox 99 04/11/22 06:49 O2 Del Method 04/11/22 06:49 BMI result Body Mass Index 33.5 Appearance: Alert. Oriented X3. No acute distress. Eyes: Pupils equal, round and reactive to light. ENT: Pharynx moderate erythema mild swelling no exudates. TMs normal bilaterally Neck: Normal inspection. Neck supple. CVS: Normal heart rate and rhythm. Pulses normal. Respiratory: No respiratory distress. Breath sounds normal. Abdomen: Soft and non-tender. Skin: Skin warm and dry. Normal skin color. Normal skin turgor. Extremities: No lower extremity edema. No calf ttp Neuro: Oriented X 3. No motor deficit. No sensory deficit. Course Course Course Narrative: swabs negative will treat as bronchitis MDM - URI/Sore Throat MDM Narrative Medical decision making narrative: 31 yo female with hx of HLD presents with URI symptoms x 5 days - at this time will need flu/covid strep swab - suspect possible RSV vs bronchitis - not toxic, stable VS, dispo per results and findings Lab Data Labs: Lab Results 04/11/22 04/11/22 04/11/22 Range/Units 08:20 08:20 08:20 COVID-19 (BECCA) Negative (Negative) COVID-19 Clin Com See Note Influenza Type A (JOZEF) Negative (Negative) Influenza Type B (JOZEF) Negative (Negative) Influenza A & B Note See Note S. pyogenes GrpA JOZEF Negative (Negative) Discharge Plan Discharge Clinical Impression: Bronchitis Patient Disposition: Home, Self-Care Instructions: Acute Bronchitis (ED) Additional Instructions: return to ED for any worsening symptoms or concerns negative flu, covid, strep throat Prescriptions: New azithromycin 250 mg tablet See Rx Instructions .ROUTE .COMPLEX Qty: 6 0RF Rx Instructions: For 250 mg dose pack: take 500 mg today (day 1), then 250 mg for 4 days (days 2-5) benzonatate 100 mg capsule 100 mg PO TID PRN (Reason: cough) Qty: 14 0RF albuterol sulfate 90 mcg/actuation HFA aerosol inhaler 2 puff inhalation QID PRN (Reason: shortness of breath or wheezing) Qty: 6.7 0RF No Action oxybutynin chloride 5 mg tablet 5 mg PO Q8H PRN (Reason: bladder spasms) Qty: 20 0RF levothyroxine 175 mcg tablet 1 tab PO DAILY phenazopyridine [Pyridium] 100 mg tablet 100 mg PO TID PRN (Reason: spasm) 4 Days Qty: 12 0RF tamsulosin 0.4 mg capsule 0.4 mg PO BEDTIME 14 Days Qty: 14 0RF naproxen 500 mg tablet 500 mg PO BID PRN (Reason: pain) 7 Days Qty: 14 0RF tramadol 50 mg tablet 50 mg PO Q6H PRN (Reason: pain (scale score 4-6)) Qty: 14 0RF potassium citrate 10 mEq (1,080 mg) tablet extended release 20 meq PO BID 90 Days Qty: 360 1RF Stand Alone Forms: Work/School Release
[2022-04-11 08:26] VITALS: RESP 18
[2022-04-11 08:42] LABS: Strep A Nucleic Acid Negative (Negative)
[2022-04-11 08:43] LABS: COVID-19 Test Negative (Negative); IDNOW Serial# 9DB6401D; Influenza A Negative (Negative); Influenza B2 Negative (Negative)
== END 2022-04-11 09:09 | disposition home or self-care (01) ==
PROVIDERS: Emergency Provider Emergency Medicine
DX: J40 Bronchitis, not specified as acute or chronic (principal); R05.9 Cough, unspecified; J02.9 Acute pharyngitis, unspecified; F17.210 Nicotine dependence, cigarettes, uncomplicated; Z20.822 Contact with and (suspected) exposure to COVID-19; Z71.6 Tobacco abuse counseling; Z79.899 Other long term (current) drug therapy
CPT/HCPCS: 87502; 87635; 87651; 99283; 99284